=== PATIENT | female | born 1990 | race Two or more races ===

== ENCOUNTER 2016-08-22 20:52 | Emergency (ER) | payer MEDICAID, OTHER ==
[2016-08-23 00:58] LABS: SPECIFIC GRAVITY 1.025 (1.001-1.030); URINE BILIRUBIN NEGATIVE (NEGATIVE); URINE BLOOD 4+ (NEGATIVE); URINE GLUCOSE (UA) NEGATIVE (NEGATIVE); URINE LEUKOCYTE ESTERASE TRACE (NEGATIVE); URINE NITRITE NEGATIVE (NEGATIVE); URINE PROTEIN TRACE (NEGATIVE); URINE UROBILINOGEN NORMAL (0-1 mg/dl)
[2016-08-23 00:59] LABS: URINE APPEARANCE CLEAR; URINE COLOR YELLOW
[2016-08-23 01:05] LABS: URINE BACTERIA 1+; URINE MUCUS 2+
[2016-08-23 01:16] LABS: ALB/GLOB RATIO 1.4 (>1.0); ALBUMIN 4.6 gm/dL (3.5-5.7); CALCIUM 9.5 mg/dL (8.6-10.3)
[2016-08-23 01:31] LABS: ABSOLUTE NEUTROPHIL COUNT 5.6 K/mm3 (1.8-7.7); BASO # 0.1 K/mm3 (0.0-0.2); BASO % 0.5 % (0.2-1.0); EOS # 0.1 (0.0-0.5); EOS % 0.8 % (0.9-2.9); HEMATOCRIT 40.1 % (37.0-47.0); HEMOGLOBIN 13.2 gm/l (12.0-16.0); IMM NEUT% 0.3 % (0-1); LYMPH # 3.3 (1.0-4.8); LYMPH % 34.9 % (15-45); MEAN CELL VOLUME 89.1 fl (81.0-99.0); MEAN CORPUSCULAR HEMOGLOBIN 29.3 pg (27.0-31.0); MEAN CORPUSCULAR HGB CONC 32.9 g/dl (33.0-37.0); MEAN PLATELET VOLUME 11.8 fl (7.4-10.4); MONO # 0.4 (0.0-0.8); MONO % 4.3 % (4-12); NEUT % 59.2 % (43-75); PLATELET COUNT 274 K/mm3 (130-400); RED CELL DISTRIBUTION WIDTH 12.7 % (11.5-14.5)
== END 2016-08-23 02:39 | disposition home or self-care (01) ==
LOC: ED 20:52
DX: R42 Dizziness and giddiness (principal)